=== PATIENT | female | born 1995 | race African-American/Black ===

== ENCOUNTER 2017-12-18 12:41 | Emergency (ER) | payer OTHER ==
[~2017-12-18] VITALS: Ht 162.6 cm; Wt 105.2 kg
[2017-12-18 13:00] VITALS: BP 170/59
[2017-12-18] MEDS ORDERED: SILVER SULFADIAZINE 1 % TOPICAL CREAM 50GM TOP ONE (13:15)
[2017-12-18] MEDS ORDERED: IBUPROFEN 800 MG TAB PO ONE (13:15)
== END 2017-12-18 13:39 | disposition home or self-care (01) ==
LOC: ER 12:41
DX: T23.201A Burn of second degree of right hand, unspecified site, initial encounter (principal); X58.XXXA Exposure to other specified factors, initial encounter; Y93.89 Activity, other specified; Y92.89 Other specified places as the place of occurrence of the external cause; Y99.8 Other external cause status
CPT/HCPCS: 16020